=== PATIENT | female | born 1995 | race Caucasian/White ===

== ENCOUNTER 2021-07-19 11:33 | Emergency (ER) | payer OTHER ==
[~2021-07-19] VITALS: Ht 157.5 cm; Wt 59.0 kg
[2021-07-19 11:42] VITALS: BP 112/69
[2021-07-19] MEDS ORDERED: ACETAMINOPHEN WITH CODEINE 300/30MG TABLET PO ONE (12:00)
[2021-07-19] MEDS ORDERED: NAPR-1176 MT (13:40)
[2021-07-19] MEDS ORDERED: CYCL10TA7 MT (13:40)
[2021-07-19] MEDS ORDERED: ACETAMINOPHEN WITH CODEINE 300/30MG TABLET PO SCH (14:00)
== END 2021-07-19 14:33 | disposition home or self-care (01) ==
LOC: ER 11:54
DX: S40.012A Contusion of left shoulder, initial encounter (principal); X58.XXXA Exposure to other specified factors, initial encounter; Y93.89 Activity, other specified; Y92.89 Other specified places as the place of occurrence of the external cause; Y99.8 Other external cause status
CPT/HCPCS: 73000; 73030; 81025; 99284